=== PATIENT | male | born 1995 | race Caucasian/White ===

== ENCOUNTER 2018-07-30 12:19 | Emergency (ER) | payer OTHER ==
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
[2018-07-30] MEDS ORDERED: TYLENOL 325 MG PO STA (13:13)
[2018-07-30] MEDS ORDERED: TYLENOL 325 MG ONE (13:17)
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
[2018-07-30 14:14] VITALS: BP 126/85; PULSE 76; O2SAT 100
== END 2018-07-30 14:14 | disposition home or self-care (01) ==
LOC: ED 12:19
DX: S16.1XXA Strain of muscle, fascia and tendon at neck level, initial encounter (principal); S80.02XA Contusion of left knee, initial encounter; S60.222A Contusion of left hand, initial encounter; M54.2 Cervicalgia; R42 Dizziness and giddiness; M25.562 Pain in left knee; M79.642 Pain in left hand; V85.5XXA Driver of special construction vehicle injured in nontraffic accident, initial encounter; Y93.9 Activity, unspecified; Y99.0 Civilian activity done for income or pay
CPT/HCPCS: 70450; 72125; 73130; 73562; 99284; A9270-GY